=== PATIENT | male | born 2000 | race Two or more races ===

== ENCOUNTER 2022-02-20 19:06 | Emergency (ER) | payer SELFPAY ==
[2022-02-20] MEDS ORDERED: Ketorolac 60 MG/2 ML SDV IM ONE (21:23)
== END 2022-02-20 21:51 | disposition home or self-care (01) ==
LOC: MW.ED 19:06
DX: S62.302A Unspecified fracture of third metacarpal bone, right hand, initial encounter for closed fracture (principal); W23.0XXA Caught, crushed, jammed, or pinched between moving objects, initial encounter
CPT/HCPCS: 73140; 96372; 99283; J1885